=== PATIENT | female | born 1970 | race Caucasian/White ===

== ENCOUNTER → 2023-03-15 | Outpatient (CLI) | payer OTHER | END | disposition home or self-care (01) | LOC: MAMO-SONO 10:41 | PROVIDERS: ATTEND Obstetrics & Gynecology | DX: E04.1 Nontoxic single thyroid nodule (principal); N63.0 Unspecified lump in unspecified breast; N64.4 Mastodynia; N60.09 Solitary cyst of unspecified breast ==